=== PATIENT | male | born 1980 | race African-American/Black ===

== ENCOUNTER 2018-10-18 19:41 | Inpatient (IN) ==
[2018-10-18] MEDS ORDERED: ONDANSETRON 4 MG/2 ML VIAL IV STA (20:31)
[2018-10-18] MEDS ORDERED: methylPREDNISolone SOD SUC 125 MG/2 ML VIAL IV STA (20:31)
[2018-10-18] MEDS ORDERED: ALBUTEROL/IPRATROPIUM 3 ML NEB RESP TX STA (20:31)
[2018-10-18] MEDS ORDERED: hydrALAZINE 20 MG/1 ML VIAL IV STA (20:31)
[2018-10-18] MEDS ORDERED: MORPHINE 4 MG/1 ML VIAL IV STA (20:31)
[2018-10-18] MEDS ORDERED: NITROGLYCERIN 2% OINT 1 INCH/GM PACK TOP STA (20:31)
[2018-10-18] MEDS ORDERED: DILTIAZEM 25 MG/5 ML VIAL IV ONE (21:32)
[2018-10-18 21:33] LABS: Basophils % 0.2 % (0.0-0.8); Eosinophils % 0.2 % (0.00-10.9); Hematocrit 32.5 VOL% (42.0-52.0); Hemoglobin 11.2 GM/DL (14.0-18.0); Immature Granulocytes % 0.9 %; Immature Granulocytes Absolute 0.11 #; Lymphocytes # 1.4 10*3/uL (1.4-4.0); Lymphocytes % 11.1 % (21.2-54.2); Mean Corpuscular HGB Conc 34.5 GM/DL (32-36); Mean Corpuscular Hemoglobin 28 PG (27-34); Mean Corpuscular Volume 81.9 FL (87-102); Monocytes # 1.1 10*3/uL (0.11-0.8); Monocytes % 8.7 % (1.7-12.7); Neutrophils # 10.2 10*3/uL (1.4-7.4); Neutrophils % 78.9 % (38.7-73.9); Platelet Count 48 T/CUMM (130-400); Red Blood Count 3.97 MC/CUMM (3.8-5.5); Red Cell Distribution Width 14.7 % (9.3-17.3); White Blood Count 12.8 T/CUMM (4-12)
[2018-10-18] MEDS ORDERED: niCARdipine 25 MG/10 ML VIAL IV ONE (21:36)
[2018-10-18] MEDS: niCARdipine INJ 25 MG in SODIUM CHLORIDE 0.9% 240 ML IV PRN (21:36)
[2018-10-18 21:48] LABS: Bilirubin,Total 1.5 MG/DL (0.2-1.0); Calcium 8.9 MG/DL (8.5-10.1); Osmolality,Calculated 273.5 MOS/KG (273-304); Potassium 2.7 MMOL/L (3.5-5.1); Total Protein 8.5 G/DL (6.4-8.3)
[2018-10-18] MEDS ORDERED: POTASSIUM CHLORIDE 20 MEQ TABLET PO STA (21:54)
[2018-10-18 22:02] LABS: Apearance,Urine Slightly Hazy (Clear); Bacteria,Urine Occasional /HPF (Few); Bilirubin,Urine Negative (Negative); Blood, Urine Large mg/dL (Negative); Glucose,Urine (UA) Negative (Negative); Hyaline Casts,Urine 6 /LPF (0-3); Ketones,Urine Negative (Negative); Mucus,Urine Occasional /LPF (Occasional); Nitrite,Urine Negative (Negative); Protein,Urine >=500 MG/DL; RBC,Urine 663 /HPF (0-4); Sperm,Urine Occasional /HPF (Negative); Urine Color Yellow (Yellow); Urine Specific Gravity 1.016 (1.001-1.035); Urine Urobilinogen < 2.0 EU/DL (0.2-1.0); WBC,Urine 4 /HPF (0-6)
[2018-10-18 22:04] LABS: Barbiturates Screen,Urine Negative (Negative); Benzodiazepines Screen,Urine Negative (Negative); Cannabinoid Screen,Urine Positive (Negative); Opiate Screen,Urine Negative (Negative); Phencyclidine Screen,Urine Negative (Negative)
[2018-10-18] MEDS ORDERED: LABETALOL 20 MG/4 ML SYRINGE IV STA (22:04)
[2018-10-18] MEDS ORDERED: ONDANSETRON 4 MG/2 ML VIAL IV PRN (22:27)
[2018-10-18] MEDS ORDERED: ALBUTEROL/IPRATROPIUM 3 ML NEB RESP TX PRN (23:11)
[2018-10-18 23:24] LABS: Basophils % 0.2 % (0.0-0.8); Eosinophils % 0.2 % (0.00-10.9); Hematocrit 32.5 VOL% (42.0-52.0); Hemoglobin 11.2 GM/DL (14.0-18.0); Immature Granulocytes % 0.9 %; Immature Granulocytes Absolute 0.11 #; Lymphocytes # 1.4 10*3/uL (1.4-4.0); Lymphocytes % 11.1 % (21.2-54.2); Mean Corpuscular HGB Conc 34.5 GM/DL (32-36); Mean Corpuscular Hemoglobin 28 PG (27-34); Mean Corpuscular Volume 81.9 FL (87-102); Monocytes # 1.1 10*3/uL (0.11-0.8); Monocytes % 8.7 % (1.7-12.7); Neutrophils # 10.2 10*3/uL (1.4-7.4); Neutrophils % 78.9 % (38.7-73.9); Platelet Count 48 T/CUMM (130-400); Red Blood Count 3.97 MC/CUMM (3.8-5.5); Red Cell Distribution Width 14.7 % (9.3-17.3); White Blood Count 12.8 T/CUMM (4-12)
[2018-10-18] MEDS: POTASSIUM CHLORIDE RIDER 10 MEQ in PREMIX 1 EACH IV SCH (23:25)
[2018-10-18 23:26] LABS: Anisocytosis Slight; Eosinophils 1 % (0-10); Lymphocytes 10 % (20-55); Macrocytosis Slight; Segmented Neutrophils 83 % (50-85); Total Cells Counted 100
[2018-10-18 23:27] LABS: Platelet Estimate Decreased; Schistocytes Few
[2018-10-18] MEDS ORDERED: CLOPIDOGREL 75 MG TABLET PO STA (23:27)
[2018-10-19] MEDS ORDERED: niCARdipine 25 MG/10 ML VIAL IV ONE ×3 (00:19→08:18)
[2018-10-19] MEDS: niCARdipine INJ 25 MG in SODIUM CHLORIDE 0.9% 240 ML IV PRN ×3 (00:23→15:50)
[2018-10-19] MEDS ORDERED: niCARdipine INJ 25 MG in SODIUM CHLORIDE 0.9% 240 ML IV PRN (00:23)
[2018-10-19] MEDS: POTASSIUM CHLORIDE RIDER 10 MEQ in PREMIX 1 EACH IV SCH ×3 (00:31→03:21)
[2018-10-19 00:40] LABS: Hepatitis A Ab IgM Quant 0.09 Index; Hepatitis A Ab IgM Result Negative (Negative); Hepatitis B Core IgM Quant < 0.05 Index; Hepatitis B Core IgM Result Negative (Negative); Hepatitis B Surface Ag Quant < 0.10 Index; Hepatitis B Surface Ag Result Negative (Negative); Hepatitis C Virus Ab Quant 0.03 Index; Hepatitis C Virus Ab Result Negative (Negative)
[2018-10-19 04:12] LABS: Basophils % 0.2 % (0.0-0.8); Hematocrit 28.5 VOL% (42.0-52.0); Hemoglobin 9.7 GM/DL (14.0-18.0); Immature Granulocytes % 1.1 %; Immature Granulocytes Absolute 0.13 #; Lymphocytes % 8.3 % (21.2-54.2); Mean Corpuscular Hemoglobin 28 PG (27-34); Mean Corpuscular Volume 83.1 FL (87-102); Monocytes # 0.2 10*3/uL (0.11-0.8); Monocytes % 1.2 % (1.7-12.7); Neutrophils % 89.2 % (38.7-73.9); Red Blood Count 3.43 MC/CUMM (3.8-5.5); Red Cell Distribution Width 15.1 % (9.3-17.3); White Blood Count 12.4 T/CUMM (4-12)
[2018-10-19 04:15] LABS: Platelet Count 69 T/CUMM (130-400)
[2018-10-19 04:36] LABS: Troponin I 0.437 NG/ML (0.00-0.045)
[2018-10-19 04:39] LABS: Albumin 3.6 G/DL (3.4-5.0); Bilirubin,Total 0.8 MG/DL (0.2-1.0); Calcium 8.6 MG/DL (8.5-10.1); Osmolality,Calculated 272.8 MOS/KG (273-304); Potassium 3.5 MMOL/L (3.5-5.1); Risk Ratio 5.37; Thyroid Stimulating Hormone 2.25 uIU/ml (0.358-3.74); Total Protein 8.1 G/DL (6.4-8.3); VLDL CHOLESTEROL 26.2 MG/DL
[2018-10-19 04:47] LABS: Hypochromasia 1+; Ovalocytes Slight; Platelet Estimate Decreased; Schistocytes Slight
[2018-10-19] MEDS ORDERED: METOPROLOL TARTRATE 50 MG TABLET ONE (07:25)
[2018-10-19] MEDS ORDERED: amLODIPine 5 MG TABLET PO SCH (09:00)
[2018-10-19] MEDS ORDERED: FUROSEMIDE 40 MG TABLET PO SCH (09:00)
[2018-10-19] MEDS ORDERED: METOPROLOL TARTRATE 50 MG TABLET PO SCH (09:00)
[2018-10-19] MEDS: ATORVASTATIN 10 MG TABLET PO SCH (10:41)
[2018-10-19] MEDS ORDERED: amLODIPine 5 MG TABLET PO ONE (12:08)
[2018-10-19] MEDS: CARVEDILOL 25 MG TABLET PO SCH ×2 (13:57→21:37)
[2018-10-20] MEDS: cloNIDine 0.1 MG TABLET PO PRN ×2 (00:27→16:15)
[2018-10-20 05:33] LABS: Basophils % 0.1 % (0.0-0.8); Immature Granulocytes Absolute 0.16 #; Lymphocytes # 2.1 10*3/uL (1.4-4.0); Lymphocytes % 13.5 % (21.2-54.2); Mean Corpuscular HGB Conc 33.3 GM/DL (32-36); Mean Corpuscular Hemoglobin 28 PG (27-34); Mean Corpuscular Volume 84.1 FL (87-102); Monocytes # 1.2 10*3/uL (0.11-0.8); Monocytes % 7.3 % (1.7-12.7); Neutrophils # 12.3 10*3/uL (1.4-7.4); Neutrophils % 78.1 % (38.7-73.9); Platelet Count 120 T/CUMM (130-400); Red Blood Count 3.21 MC/CUMM (3.8-5.5); Red Cell Distribution Width 15.3 % (9.3-17.3); White Blood Count 15.8 T/CUMM (4-12)
[2018-10-20 05:45] LABS: Calcium 8.8 MG/DL (8.5-10.1); Osmolality,Calculated 282.4 MOS/KG (273-304); Potassium 3.6 MMOL/L (3.5-5.1)
[2018-10-20 06:37] LABS: Hypochromasia 1+; Ovalocytes Slight; Platelet Estimate Normal
[2018-10-20] MEDS: ATORVASTATIN 10 MG TABLET PO SCH (08:49)
[2018-10-20] MEDS: cloNIDine 0.1 MG TABLET PO SCH ×3 (08:49→20:26)
[2018-10-20] MEDS: CARVEDILOL 25 MG TABLET PO SCH ×2 (08:49→20:26)
[2018-10-20] MEDS: SODIUM CHLORIDE 0.45% 1,000 ML IV SCH ×2 (08:54→20:25)
[2018-10-20 09:54] LABS: HIV Antigen/Antibody Result Nonreactive (Nonreactive)
[2018-10-20] MEDS ORDERED: amLODIPine 5 MG TABLET PO SCH (10:00)
[2018-10-20] MEDS: MORPHINE 4 MG/1 ML VIAL IV PRN ×2 (15:39→20:26)
[2018-10-20] MEDS: ceFAZolin 1,000 MG in SYRINGE 1 EACH IV SCH (17:19)
[2018-10-20 17:43] LABS: Apearance,Urine CLEAR (Clear); Bilirubin,Urine Negative (Negative); Blood, Urine Small mg/dL (Negative); Glucose,Urine (UA) Negative (Negative); Ketones,Urine Negative (Negative); Nitrite,Urine Negative (Negative); Protein,Urine 30 MG/DL; RBC,Urine <1 /HPF (0-4); Squamous Epithelial Cell,Urine Occasional /HPF (0-10); Urine Color Colorless (Yellow); Urine Specific Gravity 1.006 (1.001-1.035); Urine Urobilinogen < 2.0 EU/DL (0.2-1.0); WBC,Urine <1 /HPF (0-6)
[2018-10-21 05:02] LABS: Basophils % 0.3 % (0.0-0.8); Eosinophils # 0.1 10*3/uL (0.0-0.87); Eosinophils % 0.4 % (0.00-10.9); Hemoglobin 8.7 GM/DL (14.0-18.0); Immature Granulocytes % 2.6 %; Lymphocytes # 2.9 10*3/uL (1.4-4.0); Mean Corpuscular HGB Conc 32.2 GM/DL (32-36); Mean Corpuscular Hemoglobin 28 PG (27-34); Mean Corpuscular Volume 86.5 FL (87-102); Monocytes # 1.1 10*3/uL (0.11-0.8); Monocytes % 7.2 % (1.7-12.7); NRBC # 0.04 10*3/uL; Neutrophils # 10.9 10*3/uL (1.4-7.4); Neutrophils % 70.5 % (38.7-73.9); Platelet Count 122 T/CUMM (130-400); Red Blood Count 3.12 MC/CUMM (3.8-5.5); Red Cell Distribution Width 15.9 % (9.3-17.3); White Blood Count 15.5 T/CUMM (4-12)
[2018-10-21 05:28] LABS: Osmolality,Calculated 282.4 MOS/KG (273-304); Potassium 3.2 MMOL/L (3.5-5.1)
[2018-10-21 05:34] LABS: Hypochromasia 1+; Ovalocytes Slight; Platelet Estimate Adequate
[2018-10-21] MEDS: ceFAZolin 1,000 MG in SYRINGE 1 EACH IV SCH (05:52)
[2018-10-21] MEDS: cloNIDine 0.1 MG TABLET PO SCH (08:13)
[2018-10-21] MEDS: CARVEDILOL 25 MG TABLET PO SCH ×2 (08:13→20:25)
[2018-10-21] MEDS: ATORVASTATIN 10 MG TABLET PO SCH (08:13)
[2018-10-21] MEDS ORDERED: VANCOMYCIN INJ 1,000 MG in SODIUM CHLORIDE 0.9% 250 ML IV ONE (09:23)
[2018-10-21 09:43] LABS: Total Protein (Chem) 7.4 G/DL (6.4-8.3)
[2018-10-21 09:44] LABS: Albumin (SPE) 4.7 G/DL (3.2-5.3); Albumin (SPE) Rel % 63.2 %; Alpha 1 (SPE) 0.3 G/DL (0.1-0.4); Alpha 1 (SPE) Rel % 4.3 %; Alpha 2 (SPE) 0.6 G/DL (0.4-1.0); Alpha 2 (SPE) Rel % 8.3 %; Beta (SPE) 0.8 G/DL (0.5-1.1); Beta (SPE) Rel % 10.7 %; Gamma (SPE) Rel % 13.5 %
[2018-10-21] MEDS ORDERED: VANCOMYCIN INJ 1,500 MG in SODIUM CHLORIDE 0.9% 500 ML IV ONE (10:30)
[2018-10-21] MEDS: MINOXIDIL 2.5 MG TABLET PO SCH ×2 (13:21→20:24)
[2018-10-21] MEDS ORDERED: POTASSIUM CHLORIDE 20 MEQ TABLET PO ONE (13:30)
[2018-10-21] MEDS: SODIUM CHLORIDE 0.45% 1,000 ML IV SCH (20:26)
[2018-10-22 05:50] LABS: Calcium 8.9 MG/DL (8.5-10.1); Osmolality,Calculated 274.7 MOS/KG (273-304); Potassium 3.2 MMOL/L (3.5-5.1)
[2018-10-22] MEDS: MINOXIDIL 2.5 MG TABLET PO SCH ×2 (08:13→20:46)
[2018-10-22] MEDS: CARVEDILOL 25 MG TABLET PO SCH ×2 (08:14→20:47)
[2018-10-22] MEDS: ATORVASTATIN 10 MG TABLET PO SCH (08:14)
[2018-10-22] MEDS ORDERED: VANCOMYCIN INJ 1,250 MG in SODIUM CHLORIDE 0.9% 250 ML IV ONE (09:00)
[2018-10-22] MEDS ORDERED: VANCOMYCIN INJ 1,250 MG in SODIUM CHLORIDE 0.9% 250 ML IV PRN (09:30)
[2018-10-22 14:28] LABS: Protein/Creatinine Ratio,Urine 0.8 RATIO
[2018-10-22 16:18] LABS: Myeloperoxidase Antibody < 0.2 U
[2018-10-23 05:57] LABS: Basophils % 0.2 % (0.0-0.8); Eosinophils # 0.2 10*3/uL (0.0-0.87); Eosinophils % 1.7 % (0.00-10.9); Hematocrit 25.1 VOL% (42.0-52.0); Hemoglobin 8.5 GM/DL (14.0-18.0); Immature Granulocytes % 1.7 %; Lymphocytes # 2.2 10*3/uL (1.4-4.0); Lymphocytes % 18.1 % (21.2-54.2); Mean Corpuscular HGB Conc 33.9 GM/DL (32-36); Mean Corpuscular Hemoglobin 29 PG (27-34); Mean Corpuscular Volume 84.5 FL (87-102); Mean Platelet Volume 10.8 FL (9.6-12.0); Monocytes % 7.9 % (1.7-12.7); Neutrophils # 8.5 10*3/uL (1.4-7.4); Neutrophils % 70.4 % (38.7-73.9); Platelet Count 164 T/CUMM (130-400); Red Blood Count 2.97 MC/CUMM (3.8-5.5); Red Cell Distribution Width 15.9 % (9.3-17.3); White Blood Count 12.1 T/CUMM (4-12)
[2018-10-23 06:21] LABS: Calcium 8.6 MG/DL (8.5-10.1); Osmolality,Calculated 282.2 MOS/KG (273-304); Osmolality,Calculated 283.1 MOS/KG (273-304); Potassium 3.2 MMOL/L (3.5-5.1); Potassium 3.3 MMOL/L (3.5-5.1)
[2018-10-23 07:52] VITALS: BP 149/100
[2018-10-23] MEDS: MINOXIDIL 2.5 MG TABLET PO SCH (08:14)
[2018-10-23] MEDS: CARVEDILOL 25 MG TABLET PO SCH (08:14)
[2018-10-23] MEDS: ATORVASTATIN 10 MG TABLET PO SCH (08:14)
== END 2018-10-23 10:22 | disposition home or self-care (01) | DRG 305 ==
LOC: N.ED 19:41 → N.EDINP 22:27 → SUATTDRO 22:27 → N.ICU 10-19 09:04 → N.2E 10-19 18:30
PROVIDERS: ADMIT Family Medicine; ATTEND Internal Medicine Infectious Disease

== ENCOUNTER 2018-11-21 06:29 | Inpatient (IN) ==
[2018-11-21] MEDS ORDERED: niCARdipine INJ 25 MG in SODIUM CHLORIDE 0.9% 240 ML IV STA (07:00)
[2018-11-21 07:24] LABS: Calcium 9.9 MG/DL (8.5-10.1); Potassium 3.5 MMOL/L (3.5-5.1)
[2018-11-21 08:41] LABS: Barbiturates Screen,Urine Negative (Negative); Benzodiazepines Screen,Urine Negative (Negative); Cannabinoid Screen,Urine Positive (Negative); Opiate Screen,Urine Negative (Negative); Phencyclidine Screen,Urine Negative (Negative)
[2018-11-21] MEDS ORDERED: CARVEDILOL 3.125 MG TABLET PO STA (09:03)
[2018-11-21] MEDS ORDERED: MINOXIDIL 2.5 MG TABLET PO STA (09:03)
[2018-11-21] MEDS ORDERED: CARVEDILOL 25 MG TABLET PO STA (09:06)
[2018-11-21] MEDS ORDERED: ALBUTEROL 2.5 MG/3 ML NEB RESP TX PRN (09:11)
[2018-11-21] MEDS ORDERED: INFLUENZA VIRUS VACCINE 0.5 ML SYRINGE IM ONE (10:02)
[2018-11-21] MEDS: PANTOPRAZOLE 40 MG TABLET PO SCH (10:03)
[2018-11-21] MEDS: SPIRONOLACTONE 50 MG TABLET PO SCH ×2 (10:03→20:29)
[2018-11-21] MEDS: MORPHINE 4 MG/1 ML VIAL IV PRN ×2 (11:06→15:00)
[2018-11-21] MEDS ORDERED: NITROPRUSSIDE 50 MG/2 ML VIAL ONE (12:06)
[2018-11-21] MEDS: NITROPRUSSIDE 100 MG in DEXTROSE 5% 250 ML IV PRN ×2 (12:11→20:31)
[2018-11-21] MEDS: CARVEDILOL 25 MG TABLET PO SCH (20:30)
[2018-11-21] MEDS: ENOXAPARIN 30 MG/0.3 ML SYRINGE SUBCUT SCH (20:30)
[2018-11-21] MEDS: MINOXIDIL 2.5 MG TABLET PO SCH (20:30)
[2018-11-21] MEDS: DICLOFENAC 1% GEL 100 GM TUBE TOP SCH (20:33)
[2018-11-22] MEDS: NITROPRUSSIDE 100 MG in DEXTROSE 5% 250 ML IV PRN (02:13)
[2018-11-22 03:55] LABS: Basophils % 0.2 % (0.0-0.8); Eosinophils % 0.1 % (0.00-10.9); Hematocrit 31.1 VOL% (42.0-52.0); Hemoglobin 10.2 GM/DL (14.0-18.0); Immature Granulocytes % 0.6 %; Lymphocytes # 1.2 10*3/uL (1.4-4.0); Lymphocytes % 7.3 % (21.2-54.2); Mean Corpuscular HGB Conc 32.8 GM/DL (32-36); Mean Corpuscular Hemoglobin 27 PG (27-34); Mean Corpuscular Volume 82.9 FL (87-102); Mean Platelet Volume 9.8 FL (9.6-12.0); Monocytes # 1.8 10*3/uL (0.11-0.8); Monocytes % 10.9 % (1.7-12.7); Neutrophils # 13.1 10*3/uL (1.4-7.4); Neutrophils % 80.9 % (38.7-73.9); Platelet Count 185 T/CUMM (130-400); Red Blood Count 3.75 MC/CUMM (3.8-5.5); Red Cell Distribution Width 14.6 % (9.3-17.3); White Blood Count 16.1 T/CUMM (4-12)
[2018-11-22 04:12] LABS: Calcium 8.8 MG/DL (8.5-10.1); Osmolality,Calculated 272.4 MOS/KG (273-304); Potassium 3.7 MMOL/L (3.5-5.1)
[2018-11-22] MEDS: PANTOPRAZOLE 40 MG TABLET PO SCH (08:14)
[2018-11-22] MEDS: SPIRONOLACTONE 50 MG TABLET PO SCH ×2 (08:15→20:14)
[2018-11-22] MEDS: MINOXIDIL 2.5 MG TABLET PO SCH ×2 (08:15→20:58)
[2018-11-22] MEDS: CARVEDILOL 25 MG TABLET PO SCH ×2 (08:15→20:14)
[2018-11-22] MEDS: ATORVASTATIN 10 MG TABLET PO SCH (08:15)
[2018-11-22] MEDS: DICLOFENAC 1% GEL 100 GM TUBE TOP SCH ×4 (08:18→20:14)
[2018-11-22] MEDS: ACETAMINOPHEN 325 MG TABLET PO PRN (16:57)
[2018-11-22] MEDS: MORPHINE 4 MG/1 ML VIAL IV PRN (18:42)
[2018-11-22] MEDS ORDERED: METHOCARBAMOL 750 MG TABLET ONE (19:23)
[2018-11-22] MEDS: METHOCARBAMOL 500 MG TABLET PO PRN (19:37)
[2018-11-22] MEDS: ENOXAPARIN 30 MG/0.3 ML SYRINGE SUBCUT SCH (20:14)
[2018-11-23] MEDS: METHOCARBAMOL 500 MG TABLET PO PRN ×2 (03:40→17:44)
[2018-11-23] MEDS: ACETAMINOPHEN 325 MG TABLET PO PRN ×2 (04:10→20:09)
[2018-11-23 05:09] LABS: Basophils % 0.2 % (0.0-0.8); Eosinophils % 0.1 % (0.00-10.9); Hematocrit 31.4 VOL% (42.0-52.0); Hemoglobin 10.2 GM/DL (14.0-18.0); Immature Granulocytes % 0.5 %; Immature Granulocytes Absolute 0.09 #; Lymphocytes # 1.1 10*3/uL (1.4-4.0); Lymphocytes % 6.2 % (21.2-54.2); Mean Corpuscular HGB Conc 32.5 GM/DL (32-36); Mean Corpuscular Hemoglobin 27 PG (27-34); Mean Platelet Volume 10.3 FL (9.6-12.0); Monocytes # 2.1 10*3/uL (0.11-0.8); Monocytes % 12.3 % (1.7-12.7); Neutrophils # 13.7 10*3/uL (1.4-7.4); Neutrophils % 80.7 % (38.7-73.9); Platelet Count 173 T/CUMM (130-400); Red Blood Count 3.74 MC/CUMM (3.8-5.5); Red Cell Distribution Width 14.6 % (9.3-17.3)
[2018-11-23 05:32] LABS: Albumin 3.7 G/DL (3.4-5.0); Calcium 9.3 MG/DL (8.5-10.1); Osmolality,Calculated 269.8 MOS/KG (273-304); Potassium 4.2 MMOL/L (3.5-5.1); Total Protein 8.7 G/DL (6.4-8.3)
[2018-11-23] MEDS: MORPHINE 4 MG/1 ML VIAL IV PRN (05:40)
[2018-11-23] MEDS: ATORVASTATIN 10 MG TABLET PO SCH (09:13)
[2018-11-23] MEDS: CARVEDILOL 25 MG TABLET PO SCH ×2 (09:13→20:09)
[2018-11-23] MEDS: PANTOPRAZOLE 40 MG TABLET PO SCH (09:13)
[2018-11-23] MEDS: MINOXIDIL 2.5 MG TABLET PO SCH ×3 (09:14→20:09)
[2018-11-23] MEDS: DICLOFENAC 1% GEL 100 GM TUBE TOP SCH ×4 (09:14→20:11)
[2018-11-23] MEDS: SPIRONOLACTONE 50 MG TABLET PO SCH ×2 (09:14→20:09)
[2018-11-23] MEDS: ENOXAPARIN 30 MG/0.3 ML SYRINGE SUBCUT SCH (20:09)
[2018-11-24 04:55] LABS: Basophils % 0.2 % (0.0-0.8); Eosinophils # 0.1 10*3/uL (0.0-0.87); Eosinophils % 0.7 % (0.00-10.9); Hematocrit 25.9 VOL% (42.0-52.0); Hemoglobin 8.5 GM/DL (14.0-18.0); Immature Granulocytes % 0.5 %; Immature Granulocytes Absolute 0.06 #; Lymphocytes # 0.9 10*3/uL (1.4-4.0); Lymphocytes % 7.7 % (21.2-54.2); Mean Corpuscular HGB Conc 32.8 GM/DL (32-36); Mean Corpuscular Hemoglobin 27 PG (27-34); Mean Corpuscular Volume 83.5 FL (87-102); Mean Platelet Volume 11.5 FL (9.6-12.0); Monocytes # 1.7 10*3/uL (0.11-0.8); Monocytes % 14.1 % (1.7-12.7); Neutrophils # 9.3 10*3/uL (1.4-7.4); Neutrophils % 76.8 % (38.7-73.9); Platelet Count 149 T/CUMM (130-400); Red Cell Distribution Width 14.4 % (9.3-17.3); White Blood Count 12.1 T/CUMM (4-12)
[2018-11-24 05:27] LABS: Calcium 8.3 MG/DL (8.5-10.1); Osmolality,Calculated 273.9 MOS/KG (273-304); Potassium 3.9 MMOL/L (3.5-5.1)
[2018-11-24] MEDS: CARVEDILOL 25 MG TABLET PO SCH ×2 (08:55→21:41)
[2018-11-24] MEDS: SPIRONOLACTONE 50 MG TABLET PO SCH ×2 (08:55→21:41)
[2018-11-24] MEDS: ATORVASTATIN 10 MG TABLET PO SCH (08:56)
[2018-11-24] MEDS: MINOXIDIL 2.5 MG TABLET PO SCH ×3 (08:56→21:41)
[2018-11-24] MEDS: PANTOPRAZOLE 40 MG TABLET PO SCH (08:56)
[2018-11-24] MEDS: DICLOFENAC 1% GEL 100 GM TUBE TOP SCH ×4 (09:01→21:41)
[2018-11-24] MEDS: METHOCARBAMOL 500 MG TABLET PO PRN ×2 (13:07→21:52)
[2018-11-24 13:16] LABS: Interpretation (PBGU) SEE COMMENTS; Porphobilinogen, U 0.5 mcmol/L (<=1.3)
[2018-11-24] MEDS ORDERED: SODIUM CHLORIDE 0.9% 1,000 ML IV SCH (16:00)
[2018-11-24] MEDS: ENOXAPARIN 30 MG/0.3 ML SYRINGE SUBCUT SCH (21:40)
[2018-11-25 07:30] LABS: Basophils % 0.3 % (0.0-0.8); Eosinophils # 0.1 10*3/uL (0.0-0.87); Eosinophils % 1.3 % (0.00-10.9); Hematocrit 26.6 VOL% (42.0-52.0); Hemoglobin 8.6 GM/DL (14.0-18.0); Immature Granulocytes % 0.5 %; Immature Granulocytes Absolute 0.05 #; Lymphocytes # 0.8 10*3/uL (1.4-4.0); Lymphocytes % 7.1 % (21.2-54.2); Mean Corpuscular HGB Conc 32.3 GM/DL (32-36); Mean Corpuscular Hemoglobin 27 PG (27-34); Mean Corpuscular Volume 83.9 FL (87-102); Mean Platelet Volume 10.2 FL (9.6-12.0); Monocytes # 1.3 10*3/uL (0.11-0.8); Monocytes % 12.1 % (1.7-12.7); Neutrophils # 8.7 10*3/uL (1.4-7.4); Neutrophils % 78.7 % (38.7-73.9); Platelet Count 185 T/CUMM (130-400); Red Blood Count 3.17 MC/CUMM (3.8-5.5); Red Cell Distribution Width 14.7 % (9.3-17.3); White Blood Count 11.1 T/CUMM (4-12)
[2018-11-25 07:42] LABS: Calcium 9.1 MG/DL (8.5-10.1); Osmolality,Calculated 280.5 MOS/KG (273-304)
[2018-11-25] MEDS: SPIRONOLACTONE 50 MG TABLET PO SCH (09:53)
[2018-11-25] MEDS: CARVEDILOL 25 MG TABLET PO SCH (09:54)
[2018-11-25] MEDS: MINOXIDIL 2.5 MG TABLET PO SCH (09:54)
[2018-11-25] MEDS: PANTOPRAZOLE 40 MG TABLET PO SCH (09:54)
[2018-11-25] MEDS: ATORVASTATIN 10 MG TABLET PO SCH (09:54)
[2018-11-25] MEDS: DICLOFENAC 1% GEL 100 GM TUBE TOP SCH ×2 (09:56→13:03)
[2018-11-25 11:50] VITALS: BP 135/70
== END 2018-11-25 13:07 | disposition home or self-care (01) | DRG 897 ==
LOC: N.ED 06:29 → N.EDINP 09:11 → SUATTDRO 09:11 → N.CC 09:40 → N.3E 11-23 22:13
PROVIDERS: ADMIT Internal Medicine; ATTEND Hospitalist

== ENCOUNTER 2018-12-28 09:43 | Observation (INO) ==
[2018-12-28] MEDS ORDERED: ACETAMINOPHEN 325 MG TABLET PO PRN (11:21)
[2018-12-28] MEDS ORDERED: ONDANSETRON 4 MG/2 ML VIAL IV PRN (11:21)
[2018-12-28] MEDS ORDERED: traMADol 50 MG TABLET PO PRN (11:27)
[2018-12-28] MEDS ORDERED: SODIUM CHLORIDE 0.9% 1,000 ML IV PRN (11:37)
[2018-12-28 11:56] LABS: Basophils % 0.2 % (0.0-0.8); Eosinophils # 0.2 10*3/uL (0.0-0.87); Eosinophils % 1.8 % (0.00-10.9); Hematocrit 20.3 VOL% (42.0-52.0); Immature Granulocytes % 0.5 %; Immature Granulocytes Absolute 0.05 #; Lymphocytes # 1.1 10*3/uL (1.4-4.0); Lymphocytes % 10.8 % (21.2-54.2); Mean Corpuscular HGB Conc 30.5 GM/DL (32-36); Mean Corpuscular Hemoglobin 24 PG (27-34); Mean Corpuscular Volume 79.3 FL (87-102); Mean Platelet Volume 8.5 FL (9.6-12.0); Monocytes % 9.3 % (1.7-12.7); Neutrophils % 77.4 % (38.7-73.9); Platelet Count 700 T/CUMM (130-400); Red Blood Count 2.56 MC/CUMM (3.8-5.5); Red Cell Distribution Width 16.2 % (9.3-17.3); White Blood Count 10.3 T/CUMM (4-12)
[2018-12-28 12:00] LABS: Hemoglobin 6.2 GM/DL (14.0-18.0)
[2018-12-28 16:18] LABS: % Iron Saturation 9.3 % (18-50); Ferritin 338.3 ng/ml (26-388)
[2018-12-28 20:51] LABS: Apearance,Urine CLEAR (Clear); Bilirubin,Urine Negative (Negative); Blood, Urine Negative (Negative); Glucose,Urine (UA) Negative (Negative); Ketones,Urine Negative (Negative); Nitrite,Urine Negative (Negative); Protein,Urine 100 MG/DL; RBC,Urine 1 /HPF (0-4); Urine Color Straw (Yellow); Urine Urobilinogen < 2.0 EU/DL (0.2-1.0); WBC,Urine 2 /HPF (0-6)
[2018-12-28] MEDS ORDERED: ATORVASTATIN 10 MG TABLET PO SCH (21:00)
[2018-12-28] MEDS: MINOXIDIL 2.5 MG TABLET PO SCH (21:20)
[2018-12-28] MEDS: DOCUSATE SODIUM 100 MG CAPSULE PO SCH (21:20)
[2018-12-28] MEDS: CARVEDILOL 25 MG TABLET PO SCH (21:21)
[2018-12-29 02:24] LABS: Basophils % 0.3 % (0.0-0.8); Eosinophils # 0.2 10*3/uL (0.0-0.87); Eosinophils % 1.8 % (0.00-10.9); Immature Granulocytes % 0.6 %; Immature Granulocytes Absolute 0.06 #; Lymphocytes # 1.5 10*3/uL (1.4-4.0); Lymphocytes % 14.1 % (21.2-54.2); Mean Corpuscular HGB Conc 31.5 GM/DL (32-36); Mean Corpuscular Hemoglobin 25 PG (27-34); Mean Platelet Volume 8.5 FL (9.6-12.0); Monocytes # 1.1 10*3/uL (0.11-0.8); Monocytes % 10.1 % (1.7-12.7); Neutrophils # 7.6 10*3/uL (1.4-7.4); Neutrophils % 73.1 % (38.7-73.9); Platelet Count 696 T/CUMM (130-400); Red Blood Count 3.25 MC/CUMM (3.8-5.5); Red Cell Distribution Width 16.5 % (9.3-17.3); White Blood Count 10.4 T/CUMM (4-12)
[2018-12-29 02:30] LABS: Hemoglobin 8.2 GM/DL (14.0-18.0)
[2018-12-29 02:42] LABS: Calcium 8.4 MG/DL (8.5-10.1); Osmolality,Calculated 282.5 MOS/KG (273-304); Potassium 3.7 MMOL/L (3.5-5.1)
[2018-12-29 02:54] LABS: Immunoglobulin A 487 MG/DL (70-400); Immunoglobulin G 1370 MG/DL (700-1600); Immunoglobulin M 50 MG/DL (40-230)
[2018-12-29 06:43] LABS: Immunoglobulin A (Chem) 487 MG/DL (70-400); Immunoglobulin G (Chem) 1370 MG/DL (700-1600); Immunoglobulin M (Chem) 50 MG/DL (40-230)
[2018-12-29 07:31] LABS: Immuno Free Light Chain Kappa 15.27 MG/DL (0.33-1.94); Immuno Free Light Chain Lambda 5.15 MG/DL (0.57-2.63); Immuno Free Light Chain Ratio 2.97 MG/DL (0.26-1.65)
[2018-12-29 08:30] LABS: Total Protein (Chem) 7.4 G/DL (6.4-8.3)
[2018-12-29] MEDS: MINOXIDIL 2.5 MG TABLET PO SCH (08:30)
[2018-12-29 08:31] LABS: Albumin (SPE) 3.5 G/DL (3.2-5.3); Albumin (SPE) Rel % 47.9 %; Alpha 1 (SPE) 0.5 G/DL (0.1-0.4); Alpha 1 (SPE) Rel % 6.5 %; Alpha 2 (SPE) Rel % 13.2 %; Beta (SPE) Rel % 13.7 %; Gamma (SPE) 1.4 G/DL (0.7-1.7); Gamma (SPE) Rel % 18.7 %
[2018-12-29] MEDS: DOCUSATE SODIUM 100 MG CAPSULE PO SCH (08:31)
[2018-12-29] MEDS: CARVEDILOL 25 MG TABLET PO SCH (08:31)
[2018-12-29] MEDS ORDERED: PANTOPRAZOLE 40 MG TABLET PO SCH (09:00)
[2018-12-29] MEDS ORDERED: COLCHICINE 0.6 MG CAPSULE PO SCH (09:00)
[2018-12-29 12:20] LABS: Random Urine Protein (Bench) 71 MG/DL (<11.9)
[2018-12-29 13:00] VITALS: BP 147/90
[2018-12-30 08:56] LABS: Hemoglobin A1 (Alkaline) 97.9 % (96.5-98.5); Hemoglobin A2 (Alkaline) 2.1 % (1.5-3.5)
== END 2018-12-29 15:02 | disposition home or self-care (01) ==
LOC: N.5E
PROVIDERS: ADMIT Family Medicine; ATTEND Family Medicine

== ENCOUNTER 2021-07-11 19:04 | Inpatient (IN) ==
[2021-07-11] MEDS ORDERED: PIPERACILLIN/TAZOBACTAM 3,375 MG in SODIUM CHLORIDE 0.9% 100 ML IV STA (20:06)
[2021-07-11] MEDS ORDERED: SODIUM CHLORIDE 0.9% 1,000 ML IV STA (20:06)
[2021-07-11] MEDS ORDERED: DEXAMETHASONE 4 MG/1 ML VIAL IM STA (20:10)
[2021-07-11 21:13] LABS: Basophils % 0.2 % (0.0-0.8); Hemoglobin 10.1 GM/DL (14.0-18.0); Immature Granulocytes % 0.5 %; Immature Granulocytes Absolute 0.03 #; Lymphocytes # 0.5 10*3/uL (1.4-4.0); Lymphocytes % 9.1 % (21.2-54.2); Mean Corpuscular HGB Conc 32.6 GM/DL (32-36); Mean Corpuscular Volume 78.7 FL (87-102); Mean Platelet Volume 11.3 FL (9.6-12.0); Neutrophils % 86.2 % (38.7-73.9); Platelet Count 212 T/CUMM (130-400); Red Blood Count 3.94 MC/CUMM (3.8-5.5); Red Cell Distribution Width 16.6 % (9.3-17.3); White Blood Count 5.7 T/CUMM (4-12)
[2021-07-11 21:32] LABS: Alanine Aminotransferase 15 U/L (16-61); Albumin 2.7 G/DL (3.4-5.0); Alkaline Phosphatase 79 U/L (45-117); Amylase 105 U/L (25-115); Aspartate Amino Transferase 22 U/L (0-37); Bilirubin,Total < 0.39 MG/DL (0.20-1.00); Blood Urea Nitrogen 64 MG/DL (7-18); Calcium 7.1 MG/DL (8.5-10.1); Carbon Dioxide 26 MMOL/L (21-32); Estimated Glom Filtration Rate 9 ML/MIN; Glucose 95 MG/DL (74-106); Osmolality,Calculated 285.2 MOS/KG (273-304); Sodium 134 MMOL/L (136-145); Total Protein 7.2 G/DL (6.4-8.2)
[2021-07-11] MEDS ORDERED: SODIUM CHLORIDE 0.9% 500 ML IV STA (21:40)
[2021-07-11 21:58] LABS: Bilirubin,Urine Negative (Negative); Blood, Urine Negative (Negative); Glucose,Urine (UA) Negative (Negative); Ketones,Urine Negative (Negative); Nitrite,Urine Negative (Negative); Protein,Urine >=500 MG/DL; RBC,Urine 1 /HPF (0-4); Urine Appearance CLEAR (Clear); Urine Color Yellow (Yellow); Urine Urobilinogen < 2.0 EU/DL (0.2-1.0)
[2021-07-12] MEDS ORDERED: TOCILIZUMAB IV ONE (00:16)
[2021-07-12] MEDS ORDERED: SODIUM CHLORIDE 0.9% IV ONE (00:16)
[2021-07-12] MEDS ORDERED: cefTRIAXone 1,000 MG in SODIUM CHLORIDE 0.9% 100 ML IV SCH (01:00)
[2021-07-12] MEDS ORDERED: MORPHINE 2 MG/1 ML SYRINGE IV PRN (04:05)
[2021-07-12] MEDS ORDERED: ONDANSETRON 4 MG/2 ML VIAL IV PRN (04:05)
[2021-07-12] MEDS ORDERED: ACETAMINOPHEN 325 MG TABLET PO PRN (04:05)
[2021-07-12] MEDS ORDERED: SODIUM CHLORIDE 0.9% 1,000 ML IV SCH (04:05)
[2021-07-12] MEDS ORDERED: PNEUMOCOCCAL VACCINE (13 VALENT) 0.5 ML SYRINGE IM ONE (05:38)
[2021-07-12] MEDS ORDERED: FAMOTIDINE 20 MG TABLET PO SCH (09:00)
[2021-07-12] MEDS ORDERED: PANTOPRAZOLE 40 MG TABLET PO SCH (09:00)
[2021-07-12] MEDS ORDERED: ENOXAPARIN 30 MG/0.3 ML SYRINGE SUBCUT SCH (09:00)
[2021-07-12] MEDS ORDERED: predniSONE 20 MG TABLET PO SCH (09:00)
[2021-07-12] MEDS ORDERED: DOCUSATE SODIUM 100 MG CAPSULE PO SCH (09:00)
[2021-07-12] MEDS ORDERED: AZITHROMYCIN 250 MG TABLET PO SCH (09:00)
[2021-07-12 13:04] LABS: Hepatitis B Core IgM Quant 0.08 Index; Hepatitis B Surface Ag Quant < 0.10 Index; Hepatitis B Surface Ag Result Non-Reactive (NonReactive); Hepatitis C Virus Ab Quant < 0.02 Index; Hepatitis C Virus Ab Result Non-Reactive (NonReactive)
[2021-07-12] MEDS ORDERED: HEPARIN 10,000 UNIT/10 ML VIAL IV PRN (14:08)
[2021-07-12 17:48] VITALS: BP 164/88
== END 2021-07-12 19:55 | disposition left against medical advice (07) | DRG 177 ==
LOC: N.ED 19:04 → N.EDINP 19:04 → N.2E 07-12 03:44
PROVIDERS: ADMIT Family Medicine; ATTEND Family Medicine

== ENCOUNTER 2021-08-07 09:40 | Inpatient (IN) ==
[2021-08-07] MEDS ORDERED: INFLUENZA VIRUS VACCINE 0.5 ML SYRINGE IM ONE (15:25)
[2021-08-07] MEDS ORDERED: GLUCAGON 1 MG VIAL IM PRN (15:49)
[2021-08-07] MEDS ORDERED: ACETAMINOPHEN 325 MG TABLET PO PRN (15:49)
[2021-08-07] MEDS ORDERED: ONDANSETRON 4 MG/2 ML VIAL IV PRN (15:49)
[2021-08-07] MEDS ORDERED: DEXTROSE 50% 25 GM/50 ML VIAL IV PRN (15:49)
[2021-08-07] MEDS: carvediloL 25 MG TABLET PO SCH (16:57)
[2021-08-07] MEDS: ATORVASTATIN 10 MG TABLET PO SCH ×2 (20:40→20:52)
[2021-08-07] MEDS: minoxidiL 2.5 MG TABLET PO SCH ×2 (20:40→20:51)
[2021-08-08] MEDS ORDERED: TISSUE ADHESIVE 1 EACH APPLICATOR TOP ONE (06:22)
[2021-08-08] MEDS ORDERED: HEPARIN 5,000 UNIT/1 ML VIAL ONE (06:22)
[2021-08-08] MEDS ORDERED: BUPIVACAINE MPF 0.25% 30 ML VIAL ONE (06:22)
[2021-08-08] MEDS ORDERED: LIDOCAINE 1%/EPI INJ 20 ML VIAL ONE (06:23)
[2021-08-08] MEDS ORDERED: KETAMINE 500 MG/10 ML VIAL ONE (06:44)
[2021-08-08] MEDS ORDERED: DEXMEDETOMIDINE 200 MCG/2 ML VIAL ONE (06:44)
[2021-08-08 06:45] LABS: Basophils # 0.1 10*3/uL (0.0-0.2); Basophils % 0.5 % (0.0-0.8); Eosinophils # 0.3 10*3/uL (0.0-0.87); Eosinophils % 2.7 % (0.00-10.9); Hemoglobin 8.5 GM/DL (14.0-18.0); Immature Granulocytes % 0.6 %; Immature Granulocytes Absolute 0.07 #; Lymphocytes % 9.4 % (21.2-54.2); Mean Corpuscular HGB Conc 31.5 GM/DL (32-36); Mean Corpuscular Volume 81.1 FL (87-102); Mean Platelet Volume 9.4 FL (9.6-12.0); Monocytes % 5.9 % (1.7-12.7); Neutrophils % 80.9 % (38.7-73.9); Platelet Count 323 T/CUMM (130-400); Red Blood Count 3.33 MC/CUMM (3.8-5.5); Red Cell Distribution Width 17.2 % (9.3-17.3); White Blood Count 11.1 T/CUMM (4-12)
[2021-08-08] MEDS ORDERED: SODIUM CHLORIDE 0.9% 250 ML IV SCH (07:00)
[2021-08-08 07:08] LABS: Hypochromasia 1+
[2021-08-08 07:09] LABS: Anisocytosis 1+; Microcytosis 1+; Ovalocytes Few; Platelet Estimate Normal
[2021-08-08 07:12] LABS: Albumin 3.2 G/DL (3.4-5.0); Bilirubin,Total 0.6 MG/DL (0.20-1.00); Calcium 8.1 MG/DL (8.5-10.1); Osmolality,Calculated 299.8 MOS/KG (273-304); Potassium 3.7 MMOL/L (3.5-5.1); Total Protein 8.7 G/DL (6.4-8.2)
[2021-08-08] MEDS ORDERED: MIDAZOLAM 2 MG/2 ML VIAL ONE (07:20)
[2021-08-08] MEDS ORDERED: hydrALAZINE 20 MG/1 ML VIAL ONE (07:24)
[2021-08-08] MEDS ORDERED: ONDANSETRON 4 MG/2 ML VIAL ONE (07:36)
[2021-08-08] MEDS ORDERED: DEXAMETHASONE 4 MG/1 ML VIAL ONE (07:36)
[2021-08-08] MEDS ORDERED: SEVOFLURANE 1 UNIT/15 MINUTE INH ONE ×2 (07:39→08:14)
[2021-08-08] MEDS ORDERED: METOPROLOL TARTRATE 5 MG/5 ML VIAL IV ONE (07:40)
[2021-08-08] MEDS ORDERED: HEPARIN 10,000 UNIT/10 ML VIAL IV SCH (10:15)
[2021-08-08] MEDS ORDERED: hydrALAZINE 20 MG/1 ML VIAL IV PRN (11:36)
[2021-08-08] MEDS: carvediloL 25 MG TABLET PO SCH ×2 (11:54→16:50)
[2021-08-08] MEDS: FERROUS SULFATE 325 MG TABLET PO SCH (11:54)
[2021-08-08] MEDS: minoxidiL 2.5 MG TABLET PO SCH ×2 (11:54→20:51)
[2021-08-08] MEDS ORDERED: cefTRIAXone 1,000 MG in SODIUM CHLORIDE 0.9% 100 ML IV SCH (12:00)
[2021-08-08] MEDS ORDERED: traMADol 50 MG TABLET PO PRN (16:57)
[2021-08-08] MEDS: ATORVASTATIN 10 MG TABLET PO SCH (20:51)
[2021-08-09 05:06] LABS: Basophils % 0.1 % (0.0-0.8); Eosinophils % 0.2 % (0.00-10.9); Hematocrit 21.7 VOL% (42.0-52.0); Hemoglobin 6.9 GM/DL (14.0-18.0); Immature Granulocytes % 0.9 %; Lymphocytes # 1.1 10*3/uL (1.4-4.0); Mean Corpuscular HGB Conc 31.8 GM/DL (32-36); Mean Corpuscular Volume 80.7 FL (87-102); Mean Platelet Volume 9.7 FL (9.6-12.0); Monocytes % 10.1 % (1.7-12.7); Neutrophils % 78.7 % (38.7-73.9); Platelet Count 313 T/CUMM (130-400); Red Blood Count 2.69 MC/CUMM (3.8-5.5); Red Cell Distribution Width 17.2 % (9.3-17.3); White Blood Count 10.9 T/CUMM (4-12)
[2021-08-09 05:42] LABS: Bilirubin,Total 0.4 MG/DL (0.20-1.00); Calcium 7.8 MG/DL (8.5-10.1); Osmolality,Calculated 288.2 MOS/KG (273-304); Potassium 3.6 MMOL/L (3.5-5.1); Total Protein 7.3 G/DL (6.4-8.2)
[2021-08-09] MEDS: carvediloL 25 MG TABLET PO SCH (08:45)
[2021-08-09] MEDS: minoxidiL 2.5 MG TABLET PO SCH (08:45)
[2021-08-09] MEDS: FERROUS SULFATE 325 MG TABLET PO SCH (08:46)
[2021-08-09] MEDS: cefTRIAXone 1,000 MG in SODIUM CHLORIDE 0.9% 100 ML IV SCH ×2 (08:46→12:54)
[2021-08-09] MEDS ORDERED: SODIUM CHLORIDE 0.9% 1,000 ML IV PRN (08:49)
[2021-08-09 13:59] LABS: Hematocrit 28.4 VOL% (42.0-52.0); Hemoglobin 9.1 GM/DL (14.0-18.0)
[2021-08-09 15:40] VITALS: BP 142/76
== END 2021-08-09 17:00 | disposition home or self-care (01) | DRG 291 ==
LOC: N.5E → SUATTDRO 15:48
PROVIDERS: ADMIT Internal Medicine Geriatric Medicine; ATTEND Family Medicine